=== PATIENT | female | born 1985 | race Caucasian/White ===

== ENCOUNTER 2016-11-27 14:15 | Emergency (ER) | payer SELFPAY ==
[~2016-11-27] VITALS: Ht 170.2 cm; Wt 56.0 kg
[2016-11-27 14:17] VITALS: BP 127/58; PULSE 58; RESP 12; TEMP 99.1; O2SAT 96
[2016-11-27] MEDS ORDERED: AMOX500C PO (15:47)
[2016-11-27] MEDS ORDERED: IBUP800T23 PO (15:47)
[2016-11-27] MEDS ORDERED: MAGICADU2 SWISH-SPIT (15:47)
--- NOTE | 2016-11-27 15:49 | PD ---
HPI Chief Complaint: ENT Complaint Time Seen by Provider: 15:45 Travel History International Travel<30 days: No Contact w/Intl Traveler<30days: No Traveled to known affect area: No History of Present Illness HPI 31-year-old female presents to the emergency Department with complaint of sore throat, headache, body aches since yesterday. Denies unusual drooling, lump in throat, difficulty swallowing. Reports painful swallowing. Says she looked in her throat and it looks like her left tonsil is bigger than her right. Reports feeling feverish but has not taken her temperature and has not reported MAXIMUM TEMPERATURE. Denies nasal congestion. Reports left ear pressure. Has taken NyQuil and DayQuil for her symptoms. Has not taken any other medications or tried any treatments to alleviate her symptoms. No known relieving factors. Denies significant past medical history. Denies allergies. Does not have primary care provider. No other modifying factors or associated signs and symptoms. PFSH Past Medical History Medical History: Denies Significant Hx Social History Tobacco Use: No Allergies-Medications (Allergen,Severity, Reaction): Coded Allergies: No Known Allergies (Unverified , 11/27/16) Reported Meds & Prescriptions Reported Meds & Active Scripts Active Ibuprofen 800 Mg Tab 800 Mg PO Q6HR PRN Magic Mouthwash Adult Liq (Multi-Ingredient Mouthwash/Gargle) 120 Ml Susp 5 Ml SWISH-SPIT Q3HR PRN Each 5mL contains: Nystatin 200,000units, Diphenhydramine 4.25mg, Viscous Lidocaine 10mg, Salas syrup 0.8 mL Amoxicillin 500 Mg Cap 500 Mg PO BID 10 Days Review of Systems Except as stated in HPI: all other systems reviewed are Neg Physical Exam Narrative GENERAL: Well-nourished, well-developed female patient, in no acute distress; low-grade fever 99.1, nontoxic-appearing SKIN: Warm and dry. No rash. HEAD: Atraumatic. Normocephalic. EYES: Pupils equal and round at 3 mm with brisk reaction. No scleral icterus. No injection or drainage. PERRLA. ENT: Mucosa pink and dry. Pharynx with 2+ tonsils; left tonsil appears slightly larger than the right tonsil; without tonsillar deviation; with erythema, exudate, and edema. No uvular edema. No uvular, palatal, or tonsillar deviation. Airway patent. Voice is hoarse. EARS: Bilateral pinnae and external canals appear within normal limits. Bilateral tympanic membranes without erythema, dullness or perforation.. NECK: Trachea midline. Anterior cervical lymphadenopathy and tenderness. CARDIOVASCULAR: Regular rate and rhythm. No murmur appreciated. RESPIRATORY: No accessory muscle use. Clear to auscultation. Breath sounds equal bilaterally. GASTROINTESTINAL: Abdomen soft, non-tender, nondistended. Hepatic and splenic margins not palpable. Bowel sounds are active 4 quadrants. MUSCULOSKELETAL: No obvious deformities. No clubbing. No cyanosis. No edema. NEUROLOGICAL: Awake and alert. Oriented 3. No obvious cranial nerve deficits. Motor grossly within normal limits. Normal speech. Moves all extremities. PSYCHIATRIC: Appropriate mood and affect; insight and judgment normal. Data Data Last Documented VS Vital Signs Date Time Temp Pulse Resp B/P Pulse Ox O2 Delivery O2 Flow Rate FiO2 11/27/16 14:17 99.1 58 12 127/58 96 Room Air Orders Ibuprofen (Motrin) (11/27/16 16:00) [facility] Medical Decision Making Medical Screen Exam Complete: Yes Emergency Medical Condition: Yes Medical Record Reviewed: Yes Differential Diagnosis Exudative pharyngitis, strep pharyngitis, viral pharyngitis, less likely peritonsillar abscess Narrative Course 31-year-old female physical exam consistent with exudative pharyngitis. Denies unusual drooling, lump in throat, difficulty swallowing. Ibuprofen administered in the ER. Amoxicillin, Magic mouthwash, ibuprofen prescribed for home. Patient is medically cleared and stable for discharge. Discussed reasons to return to the emergency department. Instructed patient to follow up with primary care provider. Patient agrees with treatment plan. The patients vital signs are stable and the patient is stable for outpatient follow-up and treatment. Patient discharged home, stable and in no acute distress. Diagnosis Primary Impression: Exudative pharyngitis Referrals: Primary Care Physician Patient Instructions: General Instructions, Pharyngitis (ED) Departure Forms: Tests/Procedures, Work Release Enter return to work date: Nov 29, 2016 Additional Instructions: Take Antibiotics as prescribed and complete full course of antibiotics Get plenty of sleep/rest Rest your voice Drink plenty of fluids to prevent dehydration Use warm saltwater gargles to soothe throat pain Use an air humidifier/turn off ceiling fans Use throat lozenges as needed for sore throat Use ibuprofen or acetaminophen as needed to relieve pain and fever Follow-up with your primary care provider within 2-4 days Return immediately to the emergency department immediately with worsening of symptoms Med/Other Pt SpecificInfo: Prescription(s) given Scripts Ibuprofen 800 Mg [id number] Mg PO Q6HR PRN (PAIN) #30 TAB Ref 0 Prov:Nahomi Fitzgerald 11/27/16 Yxjzpzbk-Pgmfrmysymenatl-Metmuccov Liq (Magic Mouthwash Adult Liq)120 Ml Susp5 Ml SWISH-SPIT Q3HR PRN (SORE THROAT) #120 ML Ref 0 Each 5mL contains: Nystatin 200,000units, Diphenhydramine 4.25mg, Viscous Lidocaine 10mg, Salas syrup 0.8 mL Prov:Nahomi Fitzgerald 11/27/16 Amoxicillin 500 Mg [id number] Mg PO BID 10 Days Ref 0 Prov:Nahomi Fitzgerald 11/27/16 Disposition: 01 DISCHARGE HOME Condition: Stable Nahomi Fitzgerald Nov 27, 2016 15:49
[2016-11-27] MEDS ORDERED: IBUPROFEN 800 MG TAB PO ONE (16:00)
== END 2016-11-27 16:57 | disposition home or self-care (01) ==
LOC: NEPB 14:15
DX: J02.9 Acute pharyngitis, unspecified (principal); R51 Headache
CPT/HCPCS: 99283